=== PATIENT | male | born 1960 | race Asian ===

== ENCOUNTER 2025-09-24 12:24 | Emergency (ER) | payer MEDICAID, SELFPAY ==
[2025-09-24 12:33] VITALS: BP 134/86; PULSE 80; RESP 16; TEMP 36.7; O2SAT 96; BMI 22.9
[2025-09-24 12:53] LABS: Appearance Urine Clear (Clear)
--- NOTE | 2025-09-24 14:22 | CRLHL7_ITS ---
For Patients: As a result of the Century Cures Act, medical imaging exams and procedure reports are released immediately into your electronic medical record. You may view this report before your referring provider. If you have questions, please contact your health care provider. Indication: Right lower quadrant into groin pain. Technique: Routine enhanced abdomen and pelvis protocol with 70 mL Isovue 370 IV contrast. Comparison: None. Findings : Lung bases: Minor dependent atelectasis. Liver: Normal in caliber and attenuation. No masses. Gallbladder and bile ducts: Contracted. No calcified stones. No biliary dilation. Pancreas: Unremarkable. Spleen: Normal in caliber. No masses. Adrenal glands: Unremarkable. No masses. Kidneys: No obstruction. No masses. No calculi. GI tract: Normal in caliber and appearance. No sign of mass or inflammation. Mild descending and sigmoid diverticulosis without focal inflammation. Appendix: Normal. No acute appendicitis. Lymph nodes: No lymphadenopathy. Aorta and vessels: No aneurysm or severe stenosis. Omentum/peritoneum/retroperitoneum: No masses or infiltration. No free air or significant free fluid. . Preservation of the periprostatic fat planes. Bones: No fractures or suspicious bone lesions. Soft Tissues: No mass lesions or significant hernias. Impression: No findings for acute or active abdominal or pelvic disease Please note that all CT scans at this facility use dose modulation, iterative reconstruction, and/or weight-based dosing when appropriate to reduce radiation dose to as low as reasonably achievable. Dictated by Tolu Ames MD @ 09/24/2025 3:51:24 PM (Electronically Signed)
[2025-09-24 15:03] LABS: Lactate* 1.2 mmol/L (0.5-1.9)
--- NOTE | 2025-09-24 15:05 | ED.ABDPAIN ---
HPI - Abdominal Pain General Time Seen by Provider: 15:05 <Marcela Wilson MD - Last Filed: 09/30/25 12:13> Date Seen: 09/24/25 <Marcela Wilson MD - Last Filed: 09/30/25 12:13> Chief Complaint: Abdominal Pain <Marcela Wilson MD - Last Filed: 09/30/25 12:13> Stated Complaint: Pelvic pain/pressure, poss. appendix, sent from <Marcela Wilson MD - Last Filed: 09/30/25 12:13> Time Seen by Provider: 09/24/25 12:40 <Marcela Wilson MD - Last Filed: 09/30/25 12:13> Source: patient, family, RN notes reviewed and old records reviewed <Marcela Wilson MD - Last Filed: 09/30/25 12:13> Mode of arrival: ambulatory <Marcela Wilson MD - Last Filed: 09/30/25 12:13> Limitations: no limitations <Marcela Wilson MD - Last Filed: 09/30/25 12:13> History of Present Illness HPI narrative: This 64-year-old male is referred from urgent care for abdominal pain that is concerning for appendicitis with right lower quadrant abdominal pain. They felt he needed further imaging. Trinidad Rojas from urgent care did call report. He is had symptoms for about 10 days but it is worsening. He states it originally was just less painful but has progressed, it hurts to bend over. He states the pain is in the right lower abdomen and goes into the right testicle, feels the right testicle is swollen. He has no prior nausea vomiting but is feeling nauseated due to pain now. He has had no fevers, no change in urination, no change in bowel movements. He ate a big breakfast, had not noted any prior changes in appetite. He denies any prior abdominal surgeries. He does have diabetes and his sugar has been running high. His [id number] is present helping interpret but patient seems to do fine speaking Greek. 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 He notes he took 3 shots of Tequila several days ago. He feels less pain if he is lying flat. Walking, bending forward increases symptoms. He has noted no dysuria, no hematuria. He was noted to have right lower quadrant tenderness in urgent care and referred for further imaging. <Marcela Wilson MD - Last Filed: 09/30/25 12:13> MD elicited complaint: abdominal pain <aMrcela Wilson MD - Last Filed: 09/30/25 12:13> Related Data Home Medications: Home Medications ?Medication ?Instructions ?Recorded ?Confirmed metformin 500 mg tablet,extended 500 mg PO 3XD 09/24/25 09/24/25 release 24 hr rosuvastatin 20 mg tablet 20 mg PO QPM 09/24/25 09/24/25 Previous Rx's ?Medication ?Instructions ?Recorded ketorolac 10 mg tablet 10 mg PO TID 5 days #15 tabs 09/24/25 levofloxacin 500 mg tablet 500 mg PO DAILY 10 days #10 tabs 09/24/25 <Marcela Wilson MD - Last Filed: 09/30/25 12:13> Allergies/Adverse Reactions: Allergies Allergy/AdvReac Type Severity Reaction Status Date / Time No Known Drug Allergies Allergy Verified 09/24/25 16:37 <Marcela Wilson MD - Last Filed: 09/30/25 12:13> Review of Systems Status of ROS Reports: 6 or more systems reviewed and unremarkable except as noted in History and below <Marcela Wilson MD - Last Filed: 09/30/25 12:13> Exam Const: Vital Signs, click to edit/add: Vital Signs - 24 hr 09/24/25 12:33 09/24/25 16:00 09/24/25 16:01 Temperature 98.1 F Pulse Rate 68 67 Pulse Rate [Pulse Oximeter] 80 Respiratory Rate 16 16 Blood Pressure 145/92 H Blood Pressure [Ri ght Upper Arm] 134/86 Pulse Oximetry 96 96 94 Oxygen Delivery Me thod Room Air 09/24/25 16:02 09/24/25 16:15 09/24/25 16:22 Temperature Pulse Rate 68 68 65 Pulse Rate [Pulse Oximeter] Respiratory Rate 16 Blood Pressure 147/94 H 116/87 Blood Pressure [Ri ght Upper Arm] Pulse Oximetry 96 96 97 Oxygen Delivery Me thod This 64-year-old male is seen in exam room 1, he is alert, interactive, no apparent distress. Sclera clear, conjugate gaze. Symmetric facial function, speech normal. Very pleasant. Lungs are clear, good air entry, no wheezing or crackles, no tachypnea, no accessory muscle use. CV regular rate and rhythm, no murmur, normal S1-S2. Abdomen is soft, no masses organomegaly noted. He is nontender until you come to his right lower quadrant where he has some guarding, maybe rebound. The pain continues along the right inguinal canal, right testicle seems to be more retracted towards the canal and is quite tender, maybe some swelling but is tenderness really limits examination. The scrotum itself does not look erythematous or significantly swollen. Left testicle is nontender and normal lie within the scrotum. I do not feel any definite entrapment of bowel within the right inguinal canal but he is quite tender which limits exam. <Marcela Wilson MD - Last Filed: 09/30/25 12:13> Vital Signs, click to edit/add: Vital Signs - 24 hr 09/24/25 12:33 09/24/25 16:00 09/24/25 16:01 Temperature 98.1 F Pulse Rate 68 67 Pulse Rate [Pulse Oximeter] 80 Respiratory Rate 16 16 Blood Pressure 145/92 H Blood Pressure [Ri ght Upper Arm] 134/86 Pulse Oximetry 96 96 94 Oxygen Delivery Me thod Room Air 09/24/25 16:02 09/24/25 16:15 09/24/25 16:22 Temperature Pulse Rate 68 68 65 Pulse Rate [Pulse Oximeter] Respiratory Rate 16 Blood Pressure 147/94 H 116/87 Blood Pressure [Ri ght Upper Arm] Pulse Oximetry 96 96 97 Oxygen Delivery Me thod <Adalberto Tan MD - Last Filed: 09/24/25 17:40> Documenting provider has reviewed patient's vital signs: yes <Marcela Wilson MD - Last Filed: 09/30/25 12:13> Course Course ED Course: Had ordered an IV placement, labs to be drawn and CT of his abdomen and pelvis while patient was awaiting a room back in the ED. There was a weight due to the volume in the acuity in the ER. I did try to facilitate this as I had taken the phone call from urgent care. I have also added on a testicular/scrotal ultrasound given the right scrotal pain. With 10 days of history, doubt this is testicular torsion but is testicle seems to have definite tenderness and an abnormal lie within the scrotum, seems to be retracted towards the canal. He has got definite right lower quadrant tenderness. We will be looking at CT abdomen pelvis with IV contrast and scrotal ultrasound to delineate whether this is intra-abdominal pathology, hernia or something with the in the testicle/scrotum. Have ordered some fentanyl, will have him on pulse oximetry, did premedicate with Zofran. He did have a urinalysis collected in triage and that is looking reassuring. <Marcela Wilson MD - Last Filed: 09/30/25 12:13> Vital Signs Vital signs: Initial Vital Signs Temperature 98.1 F 09/24/25 12:33 Temperature Source Temporal Artery Scan 09/24/25 12:33 Pulse Rate 80 09/24/25 12:33 Respiratory Rate 16 09/24/25 12:33 Blood Pressure 134/86 09/24/25 12:33 Blood Pressure Mean 102 09/24/25 12:33 Blood Pressure Position Sitting 09/24/25 12:33 Pulse Oximetry 96 09/24/25 12:33 Oxygen Delivery Method Room Air 09/24/25 12:33 Vital Signs Temperature 98.1 F 09/24/25 12:33 Pulse Rate 80 09/24/25 12:33 Respiratory Rate 16 09/24/25 12:33 Blood Pressure 134/86 09/24/25 12:33 Pulse Oximetry 96 09/24/25 12:33 Oxygen Delivery Method Room Air 09/24/25 12:33 Temperature 98.1 F 09/24/25 12:33 Pulse Rate 65 09/24/25 16:22 Respiratory Rate 16 09/24/25 16:22 Blood Pressure 116/87 09/24/25 16:22 Pulse Oximetry 97 09/24/25 16:22 Oxygen Delivery Method Room Air 09/24/25 12:33 <Marcela Wilson MD - Last Filed: 09/30/25 12:13> Initial Vital Signs Temperature 98.1 F 09/24/25 12:33 Temperature Source Temporal Artery Scan 09/24/25 12:33 Pulse Rate 80 09/24/25 12:33 Respiratory Rate 16 09/24/25 12:33 Blood Pressure 134/86 09/24/25 12:33 Blood Pressure Mean 102 09/24/25 12:33 Blood Pressure Position Sitting 09/24/25 12:33 Pulse Oximetry 96 09/24/25 12:33 Oxygen Delivery Method Room Air 09/24/25 12:33 Vital Signs Temperature 98.1 F 09/24/25 12:33 Pulse Rate 80 09/24/25 12:33 Respiratory Rate 16 09/24/25 12:33 Blood Pressure 134/86 09/24/25 12:33 Pulse Oximetry 96 09/24/25 12:33 Oxygen Delivery Method Room Air 09/24/25 12:33 Temperature 98.1 F 09/24/25 12:33 Pulse Rate 65 09/24/25 16:22 Respiratory Rate 16 09/24/25 16:22 Blood Pressure 116/87 09/24/25 16:22 Pulse Oximetry 97 09/24/25 16:22 Oxygen Delivery Method Room Air 09/24/25 12:33 <Adalberto Tan MD - Last Filed: 09/24/25 17:40> Medications Administered Medications: Discontinued Medications Generic Name Dose Route Start Last Admin Trade Name Freq PRN Reason Stop Dose Admin Fentanyl 50 mcg 09/24/25 15:15 09/24/25 15:53 Fentanyl 100 Mcg/2 Ml Inj IVP 09/24/25 15:16 50 mcg ONCE ONE Administration Sodium Chloride 1,000 mls @ 500 mls/hr 09/24/25 15:46 09/24/25 17:40 0.9 % Sodium Chloride 1000 Ml IV 09/24/25 17:45 Infused .Q2H ROBBY Infusion Ondansetron HCl 4 mg 09/24/25 15:15 09/24/25 15:54 Ondansetron 2 Mg/Ml Inj IVP 09/24/25 15:16 4 mg ONCE ONE Administration <Marcela Wilson MD - Last Filed: 09/30/25 12:13> Discontinued Medications Generic Name Dose Route Start Last Admin Trade Name Freq PRN Reason Stop Dose Admin Fentanyl 50 mcg 09/24/25 15:15 09/24/25 15:53 Fentanyl 100 Mcg/2 Ml Inj IVP 09/24/25 15:16 50 mcg ONCE ONE Administration Sodium Chloride 1,000 mls @ 500 mls/hr 09/24/25 15:46 09/24/25 17:40 0.9 % Sodium Chloride 1000 Ml IV 09/24/25 17:45 Infused .Q2H ROBBY Infusion Ondansetron HCl 4 mg 09/24/25 15:15 09/24/25 15:54 Ondansetron 2 Mg/Ml Inj IVP 09/24/25 15:16 4 mg ONCE ONE Administration <Adalberto Tan MD - Last Filed: 09/24/25 17:40> MDM - Abdominal Pain MDM Narrative Medical decision making narrative: care for this patient was transferred to ri at the end of Dr. Vann's shift. Ultrasound report returns with evidence of epididymitis. The patient has normal vital signs and is okay to return home. He did receive prescription for Levaquin 500 mg daily for 10 days. I also provided prescription for Toradol. <Adalberto Tan MD - Last Filed: 09/24/25 17:40> Lab Data Attestation: I reviewed the patient's lab results. <Marcela Wilson MD - Last Filed: 09/30/25 12:13> Labs: Lab Results 09/24/25 09/24/25 09/24/25 Range/Units 12:40 14:23 14:55 WBC 11.07 H (4.50-11.00) K/uL RBC 4.82 (4.30-5.90) m/uL Hgb 14.6 (13.5-17.5) gm/dL Hct 43.9 (37.0-53.0) % MCV 91 (80-100) fL MCH 30 (26-34) pg MCHC 33 (32-36) gm/dL RDW Coeff of Sara 12.7 (11.5-15.5) % Plt Count 283 (140-440) K/uL Neut % (Auto) 68.4 (42.0-72.0) % Lymph % (Auto) 21.8 (20-44) % Eddy % (Auto) 5.5 (0.0-11.0) % Eos % (Auto) 3.0 (0.0-7.0) % Baso % (Auto) 0.5 (0.0-3.0) % Neut # (Auto) 7.60 H (1.7-7.0) K/uL Lymph # (Auto) 2.40 (0.90-2.90) K/uL Eddy # (Auto) 0.60 (0.00-0.90) K/UL Eos # (Auto) 0.30 (0.00-0.50) K/uL Baso # (Auto) 0.10 (0.00-0.30) K/uL Abs Immat Gran (auto) 0.10 (0.00-0.30) K/uL Imm/Tot Granulo (auto) 0.8 % Sodium 136 (135-149) mmol/L Potassium 4.4 (3.6-5.1) mmol/L Chloride 105 (96-114) mmol/L Carbon Dioxide 26 (20-32) mmol/L Anion Gap 5 L (7-15) mEq/L BUN 16 (7-30) mg/dL Creatinine 0.9 (0.5-1.5) mg/dL Estimated Creat Clear 71.61 Estimated GFR 97 ml/min Glucose 268 H (60-115) mg/dL Lactate 1.2 (0.5-1.9) mmol/L Calcium 8.9 (8.4-10.6) mg/dL Total Bilirubin 0.5 (0.1-1.5) mg/dL AST 22 (12-35) U/L ALT 24 (4-50) U/L Alkaline Phosphatase 63 (40-150) U/L C-Reactive Protein < 0.5 L (0.5-1.0) mg/dL Total Protein 7.0 (6.0-8.3) g/dL Albumin 4.2 (3.3-5.0) g/dL Lipase 56 (23-300) U/L Urine Color Yellow (Yellow) Urine Appearance Clear (Clear) Urine pH 5.0 (5.0-8.5) Ur Specific [place] >= 1.030 (1.000-1.030) Urine Protein Negative (Negative) Urine Glucose (UA) 2+ A (Negative) Urine Ketones Negative (Negative) Urine Blood Trace-intact A (Negative) Urine Nitrite Negative (Negative) Urine Bilirubin Negative (Negative) Urine Urobilinogen 0.2 (0.2-1.0) Ur Leukocyte Esterase Negative (Negative) Urine RBC 0-2 (0-2) Urine WBC 2-5 (0-5) Urine WBC Clumps Few A (None) Ur Squamous Epith Cells Few (None-Few) Urine Bacteria Few A (None) POC Creatinine 1.0 (0.6-1.3) mg/dl <Marcela Wilson MD - Last Filed: 09/30/25 12:13> Lab Results 09/24/25 09/24/25 09/24/25 Range/Units 12:40 14:23 14:55 WBC 11.07 H (4.50-11.00) K/uL RBC 4.82 (4.30-5.90) m/uL Hgb 14.6 (13.5-17.5) gm/dL Hct 43.9 (37.0-53.0) % MCV 91 (80-100) fL MCH 30 (26-34) pg MCHC 33 (32-36) gm/dL RDW Coeff of Sara 12.7 (11.5-15.5) % Plt Count 283 (140-440) K/uL Neut % (Auto) 68.4 (42.0-72.0) % Lymph % (Auto) 21.8 (20-44) % Eddy % (Auto) 5.5 (0.0-11.0) % Eos % (Auto) 3.0 (0.0-7.0) % Baso % (Auto) 0.5 (0.0-3.0) % Neut # (Auto) 7.60 H (1.7-7.0) K/uL Lymph # (Auto) 2.40 (0.90-2.90) K/uL Eddy # (Auto) 0.60 (0.00-0.90) K/UL Eos # (Auto) 0.30 (0.00-0.50) K/uL Baso # (Auto) 0.10 (0.00-0.30) K/uL Abs Immat Gran (auto) 0.10 (0.00-0.30) K/uL Imm/Tot Granulo (auto) 0.8 % Sodium 136 (135-149) mmol/L Potassium 4.4 (3.6-5.1) mmol/L Chloride 105 (96-114) mmol/L Carbon Dioxide 26 (20-32) mmol/L Anion Gap 5 L (7-15) mEq/L BUN 16 (7-30) mg/dL Creatinine 0.9 (0.5-1.5) mg/dL Estimated Creat Clear 71.61 Estimated GFR 97 ml/min Glucose 268 H (60-115) mg/dL Lactate 1.2 (0.5-1.9) mmol/L Calcium 8.9 (8.4-10.6) mg/dL Total Bilirubin 0.5 (0.1-1.5) mg/dL AST 22 (12-35) U/L ALT 24 (4-50) U/L Alkaline Phosphatase 63 (40-150) U/L C-Reactive Protein < 0.5 L (0.5-1.0) mg/dL Total Protein 7.0 (6.0-8.3) g/dL Albumin 4.2 (3.3-5.0) g/dL Lipase 56 (23-300) U/L Urine Color Yellow (Yellow) Urine Appearance Clear (Clear) Urine pH 5.0 (5.0-8.5) Ur Specific [place] >= 1.030 (1.000-1.030) Urine Protein Negative (Negative) Urine Glucose (UA) 2+ A (Negative) Urine Ketones Negative (Negative) Urine Blood Trace-intact A (Negative) Urine Nitrite Negative (Negative) Urine Bilirubin Negative (Negative) Urine Urobilinogen 0.2 (0.2-1.0) Ur Leukocyte Esterase Negative (Negative) Urine RBC 0-2 (0-2) Urine WBC 2-5 (0-5) Urine WBC Clumps Few A (None) Ur Squamous Epith Cells Few (None-Few) Urine Bacteria Few A (None) POC Creatinine 1.0 (0.6-1.3) mg/dl <Adalberto Tan MD - Last Filed: 09/24/25 17:40> Imaging Data CT scan - abdomen: Attestation: I have reviewed the pertinent imaging results. <Marcela Wilson MD - Last Filed: 09/30/25 12:13> Radiologist's impression: Patient: NEVILLE RED Facility:?[facility] Patient ID:?[id number] Site Patient ID:?[id number]. Site :?[id number] Study:?CT-Abdomen/Pelvis 71CC ISOVUE 370-09/24/2025 3:38:51 PM Ordering Physician:Nithin Medrano Final Report: Indication: Right lower quadrant into groin pain. Technique: Routine enhanced abdomen and pelvis protocol with 70 mL Isovue 370 IV contrast. Comparison: None. Findings : Lung bases: Minor dependent atelectasis. Liver: Normal in caliber and attenuation. No masses. Gallbladder and bile ducts: Contracted. No calcified stones. No biliary dilation. Pancreas: Unremarkable. Spleen: Normal in caliber. No masses. Adrenal glands: Unremarkable. No masses. Kidneys: No obstruction. No masses. No calculi. GI tract: Normal in caliber and appearance. No sign of mass or inflammation. Mild descending and sigmoid diverticulosis without focal inflammation. Appendix: Normal. No acute appendicitis. Lymph nodes: No lymphadenopathy. Aorta and vessels: No aneurysm or severe stenosis. Omentum/peritoneum/retroperitoneum: No masses or infiltration. No free air or significant free fluid. . Preservation of the periprostatic fat planes. Bones: No fractures or suspicious bone lesions. Soft Tissues: No mass lesions or significant hernias. Impression: No findings for acute or active abdominal or pelvic disease Please note that all CT scans at this facility use dose modulation, iterative reconstruction, and/or weight-based dosing when appropriate to reduce radiation dose to as low as reasonably achievable. Dictated by Tolu Ames MD @ 09/24/2025 3:51:24 PM (Electronic Signature) <Marcela Wilson MD - Last Filed: 09/30/25 12:13> Discharge Plan Discharge Clinical Impression: Acute epididymitis <Marcela Wilson MD - Last Filed: 09/30/25 12:13> Patient Disposition: Home, Self-Care <Marcela Wilson MD - Last Filed: 09/30/25 12:13> Condition: Stable <Marcela Wilson MD - Last Filed: 09/30/25 12:13> Instructions: Epididymitis (ED) <Marcela Wilson MD - Last Filed: 09/30/25 12:13> Additional Instructions: take medication as prescribed. Follow up with MD return if worsening symptoms occur. <Marcela Wilson MD - Last Filed: 09/30/25 12:13> Prescriptions: New ketorolac 10 mg tablet 10 mg PO TID 5 Days Qty: 15 0RF levofloxacin 500 mg tablet 500 mg PO DAILY 10 Days Qty: 10 0RF No Action metformin 500 mg tablet extended release 24 hr 500 mg PO 3XD rosuvastatin 20 mg tablet 20 mg PO QPM <Marcela Wilson MD - Last Filed: 09/30/25 12:13> Follow Up/Referrals: ZULLY JARRELL DO [Primary Care Provider, Family Practice] <Marcela Wilson MD - Last Filed: 09/30/25 12:13> Stand Alone Forms: MyHealth Info Instructions <Marcela Wilson MD - Last Filed: 09/30/25 12:13>
[2025-09-24 15:11] LABS: Hematocrit* 43.9 % (37.0-53.0); Hemoglobin* 14.6 gm/dL (13.5-17.5); Immature Granulocytes Pct Auto 0.8 %; Mean Corpuscular HGB Conc 33 gm/dL (32-36); Mean Corpuscular Hemoglobin 30 pg (26-34); Mean Corpuscular Volume 91 fL (80-100); RDW Coefficient of Variation % 12.7 % (11.5-15.5); Red Blood Count* 4.82 m/uL (4.30-5.90); White Blood Count* 11.07 K/uL (4.50-11.00)
--- NOTE | 2025-09-24 15:15 | CRLHL7_ITS ---
For Patients: As a result of the Century Cures Act, medical imaging exams and procedure reports are released immediately into your electronic medical record. You may view this report before your referring provider. If you have questions, please contact your health care provider. Indication: Right testicular pain Technique: Testicular ultrasound utilizing grayscale and color and spectral Doppler Comparison: None Findings: Left testicle: Normal in echogenicity and size measuring 3.7 x 2.5 x 2.5 centimeters. No suspicious testicular mass/lesion. Normal arterial venous blood flow. The epididymis is unremarkable. No significant hydrocele. No varicocele. Right testicle: Normal in echogenicity and size measuring 3.2 x 2.8 x 3.0 centimeters. No suspicious testicular mass/lesion. Normal arterial venous blood flow. Enlargement of the right epididymis, difficult to accurately measure secondary to orientation, with increased blood flow and overall increased echogenicity. No significant hydrocele. No varicocele. Impression: 1. No testicular torsion. 2. Sonographic findings as detailed above concerning for right epididymitis. 3. No suspicious testicular masses/lesions. Dictated by Donald Jefferson MD @ 09/24/2025 5:13:05 PM (Electronically Signed)
[2025-09-24 15:16] LABS: Immature Granulocytes Abs Auto 0.10 K/uL (0.00-0.30); Lymphocytes Absolute Auto 2.40 K/uL (0.90-2.90); Slide Review Reflex No
[2025-09-24 15:19] LABS: Albumin* 4.2 g/dL (3.3-5.0); Chloride* 105 mmol/L (96-114); Potassium* 4.4 mmol/L (3.6-5.1); Sodium* 136 mmol/L (135-149)
[2025-09-24 15:22] LABS: Alanine Aminotransferase* 24 U/L (4-50); Alkaline Phosphatase* 63 U/L (40-150); Anion Gap 5 mEq/L (7-15); Aspartate Amino Transferase* 22 U/L (12-35); Bilirubin Total* 0.5 mg/dL (0.1-1.5); Blood Urea Nitrogen* 16 mg/dL (7-30); Carbon Dioxide* 26 mmol/L (20-32); Creatinine* 0.9 mg/dL (0.5-1.5); Est. Creatinine Clearance* 71.61; Estimated Glomerular Filt Rate 97 ml/min; Total Protein* 7.0 g/dL (6.0-8.3)
[2025-09-24 15:23] LABS: Calcium* 8.9 mg/dL (8.4-10.6); Glucose* 268 mg/dL (60-115)
--- OUTSIDE RECORDS SUMMARY | 2025-09-24 15:29 | XMS_ITS | Clinical Summary ---
Author Organization [facility] Address [address] [place] [address] Care Team Providers Care Operations Administrator Name Role Phone Brad Trevino MD Primary Care Provider [phone] Source Comments You are receiving this document as you are listed as the primary care provider,follow-up provider, or the patient has been referred to you for consultation.This is in compliance with the Medicare and[facility] Cent[facility] EHR Incentive Program,which states Providers who transition their patient to another setting of careor provider of care or refers their patient to another provider of care shouldprovide summary care record for each transition of care or referral. [facility] Allergies No known active allergies Medications aspirin EC 81 MG enteric coated tabletIndicatio ns:Type 2 diabetes mellitus without complication, without long-term current use of insulin (HRC) Take 1 Tablet by mouth daily. 90 Tablet 3 11/10/2019 Active latanoprost (XALATAN) 0.005 % eye drop solution Place 1 Drop into both eyes every evening. 2.5 mL 11 12/19/2019 Active HYDROcodone-susana taminophen (NORCO) 5-325 MG tabletIndicatio ns:Pain, dental Take 1-2 Tablets by mouth every 6 hours as needed. 15 Tablet 12/26/2019 Active metFORMIN XR (GLUCOPHAGE XR) 500 MG 24 hour release tabletIndicatio ns:Type 2 diabetes mellitus without complication, without long-term current use of insulin (HRC) Take 2 Tablets by mouth two times a day with meals. 360 Tablet 3 01/01/2020 Active ketorolac (ACULAR) 0.5 % eye drop solution 1 Drop 4x/day to the surgical eye. Start day of surgery 5 mL 1 01/19/2020 Active ofloxacin (OCUFLOX) 0.3 % eye drop solution 1 drop 4x/day to surgical eye. Start 2 days before surgery 5 mL 1 01/19/2020 Active prednisoLONE acetate (PRED FORTE) 1 % eye drop suspension 1 drop 4x/day to surgical eye. 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 Overview (01/19/2020): Added automatically from request for surgery [id number] Immunizations Immunization Administration Dates Next Due Influenza IIV4 (Quadrivalent) 0.5mL (87541) 10/23,10/19/2018 PPSV23 (Pneumovax) 07/22/2018 Td 06/25/1999 Tdap 02/18/2018 Family History Medical History Relation Name Comments Diabetes Father Diabetes Brother Amblyopia/Strabismus Negative Family History Glaucoma Negative Family History Macular Degeneration Negative Family History Retinal Detachment Negative Family History Relation Name Status Comments Father Brother Social History Tobacco Use Types Packs/Day Years Used Date Smoking Tobacco: Every Day Smokeless Tobacco: Never Alcohol Use Standard Drinks/Week Comments Yes 0 (1 standard drink = 0.6 oz pur e alcohol) PHQ-2 Answer Date Recorded PHQ-2 Score 0 11/10/2019 Sex and Gender Information Value Date Recorded Sex Assigned at Not on file Legal Sex Male 5:35 AM CDT Gender Identity Not on file Sexual Orientation Not on file Last Filed Vital Signs Vital Sign Reading Time Taken Comments Blood Pressure 136/86 01/01/2020 5:45 PM RN SCHOOL Pulse 76 01/01/2020 5:45 PM RN SCHOOL Temperature - - Respiratory Rate - - Oxygen Saturation - - Inhaled Oxygen Concentration - - Weight 74.5 kg (164 lb 3.2 oz) 01/01/2020 5:45 P M RN SCHOOL Height 172 cm (5' 7.72) 11/10/2019 3:25 PM RN SCHOOL Body Mass Index 25.18 11/10/2019 3:25 PM RN SCHOOL Plan of Treatment Health Maintenance Due Date Last Done Comments Diabetes: Foot Exam 1962 Diabetes: Lipid Panel 1962 Hep B Immunization Discussion 1962 Hep C Screening (Preventive Services) 1962 PSA Screening Discussion 1962 HIV Screening (Preventive Services) 1978 Zoster/Shingles Vaccine (1 o f 2) 2012 Pneumococcal Vaccine 50+ Yrs (2 of 2 - PCV) 07/22/2019 07/22/2018 Adult Preventive Visit 11/10/2020 11/10/2019 Diabetes: Albumin/Creatinine Ratio, Urine 11/10/2020 11/10/2019 Diabetes: Creatinine 11/10/2020 11/10/2019 Diabetes: Eye Exam 01/09/2021 01/09/2020, 12/01/2019 FIT Colon Cancer Screening 03/19/2021 03/19/2020 Diabetes: HGBA1C 09/05/2021 03/06/2021, 01/01/2020, 11/10/2019 COVID-19 Vaccine (1 - 2023-2 5 season) 2025 Influenza Vaccine (#1) 2025 9, 10/19/2018 DTaP/Tdap/Td Vaccine (2 - Tdap) 02/19/2028 02/18/2018, 06/25/1999 RSV Vaccine (1 - 1-dose 75+ series) 2037 HepA Vaccine Aged Out No longer eligi ble based on patient's age to complete this topic HepB Vaccine Aged Out No longer eligi ble based on patient's age to complete this topic Hib Vaccine Aged Out No longer eligi ble based on patient's age to complete this topic IPV (Polio) Vaccine Aged Out No longe r eligible based on patient's age to complete this topic MCV4 Vaccine Aged Out No longer eligi ble based on patient's age to complete this topic Meningococcal B Vaccine Aged Out No l onger eligible based on patient's age to complete this topic Procedures Procedure Name Priority Date/Time Associated Diagnosis Comments FIT,OCCULT BLOOD, STOOL Routine 03/19/2020 3:23 PM CDT Screening for colon cancer HGB A1C Routine 01/01/2020 6:14 PM RN SCHOOL Type 2 diabetes mellitus without complication, without long-term current use of insulin (HRC) ALBUMIN/CREAT RATIO Routine 11/10/2019 4 :48 PM RN SCHOOL Type 2 diabetes mellitus without complication, without long-term current use of insulin (HRC) CREATININE / GFR Routine 11/10/2019 4:19 PM RN SCHOOL Type 2 diabetes mellitus without complication, without long-term current use of insulin (HRC) Well adult exam from Last 3 Months or Most Recently Relevant to Health Maintenance Results * FIT Colon Rectal Cancer Screening (03/19/2020 3:23 PM CDT) FIT Specimen 1 Negative Negative 03/20/2020 9:[address] [facility] Stool 03/19/2020 3:23 PM CDT 03/19/2020 3:23 PM CDT Brad Trevino MD LAB_1 Final Resu Performing Organization Address [facility] de Phone Number [facility] [address] [phone] * (ABNORMAL) Hemoglobin A1C Glycosylated (01/01/2020 6:14 PM RN SCHOOL) Pathologist [facility] Hemoglobin A1C 7.3(H) <=5.6 % 01/01/2020 9:12 PM RN SCHOOL [facility] Blood Venipuncture / Unknown 01/01/2020 6:14 PM RN SCHOOL 01/01/2020 6:14 PM RN SCHOOL Narrative [facility] - 01/01/2020 9:12 PM RN SCHOOL For patients not previously diagnosed with diabetes: 5.7-6.4%: Increased risk for diabetes 6.5% and greater: Diagnostic for diabetes For patients diagnosed with diabetes: <8.0%: Goal of therapy for ages 18-75 Clinicians may recommend a higher or lower goal for specific individuals. us Brad Trevino MD LAB_1 Final Resu lt Performing Organization Address City/[facility]/ZIP Co de Phone Number [facility] [address] * (ABNORMAL) Microalbumin Urine Random (UMAR) (11/10/2019 4:48 PM RN SCHOOL) Albumin, Urine, Random 110.4 mg/L 11/10/2019 6:[address] [facility] Creatinine, Urine, Random 145 >20 mg/dL 11/10/2019 6:[address] [facility] Albumin/Creati nine Ratio, Urine, Random 76(H) <30 mg/g 11/10/2019 6:[address] [facility] Urine,random 11/10/2019 4:4 8 PM RN SCHOOL 11/10/2019 4:48 PM RN SCHOOL Brad Trevino MD LAB_1 Final Resu lt Performing Organization Address [facility]/ZIP Co de Phone Number [facility] [address] [place] [address], [facility] [phone] * Creatinine (11/10/2019 4:19 PM RN SCHOOL) Creatinine 0.90 0.73 - 1.18 mg/dL 11/10/2019 6:[address] [facility] GFR, Estimated >60 >60 mL/min/1.7 3m2 11/10/2019 6:[address] [facility] GFR, Est If >60 >60 mL/min/1.7 3m2 11/10/2019 6:[address] [facility] Blood Venipuncture / Unknown 11/10/2019 4:19 PM RN SCHOOL 11/10/2019 4:19 PM RN S[facility]OL Brad Trevino MD LAB_1 Final Resu lt Performing Organization Address City/[facility]/ZIP Co de Phone Number [facility] [address] [place] [address], [facility] [phone] from Last 3 Months or Most Recently Relevant to Health Maintenance Care Teams Operations Administrator Relationship Specialty [place] [address] [place] [address] PCP - General Family Practice 01/02/20
--- OUTSIDE RECORDS SUMMARY | 2025-09-24 15:29 | XMS_ITS | Clinical Summary ---
Author Organization [facility] Address [address] [place] [address] Care Team Providers Care Television Agent Name Role Phone Silvestre Doran DO Primary Care Provider [phone] Allergies No known active allergies Medications calcium carbonate-vitam in D3, 500 mg-400 units, (OSCAL 500 + D) tablet Take 1 tablet by mouth 2 times daily before meals. 0 1 Active blood-glucose meterIndication s:Type 2 diabetes mellitus with hyperglycemia, without long-term current use of insulin (HC) by abdominal subcutaneous route. Dispense meter, test strips, lancets covered by pt ins. E11.65 IDDM type II, uncontrolled - Test 3 times/day. 1 Device 1 Active lancetsIndicati ons:Type 2 diabetes mellitus with hyperglycemia, without long-term current use of insulin (HC) As directed. Test 3 times per day. 1 Each 1 Active latanoprost (XALATAN) 0.005 % ophthalmic solutionIndicat ions:Primary open angle glaucoma of both eyes, unspecified glaucoma stage Place 1 Drop into both eyes at bedtime 7.5 mL 2 1 Active blood sugar diagnostic (Blood Glucose Test) stripIndication s:Type 2 diabetes mellitus with hyperglycemia, without long-term current use of insulin (HC) Test 3 times per day. 100 Each 12 4 Active metFORMIN (GLUCOPHAGE XR) 500 mg Extended-Releas e tabletIndicatio ns:Type 2 diabetes mellitus with hyperglycemia, without long-term current use of insulin (HC) TAKE THREE TABLETS BY MOUTH DAILY WITH EVENING MEAL. 270 Tablet 3 5 Active meloxicam (MOBIC) 7.5 mg tabletIndicatio ns:Accidental fall, initial encounter,Traum atic injury of rib,Breast tenderness in male Take 1 Tablet (7.5 mg) by mouth once daily. 30 Tablet 5 Active rosuvastatin (CRESTOR) 20 mg tabletIndicatio ns:Type 2 diabetes mellitus with hyperglycemia, without long-term current use of insulin (HC) Take 1 Tablet (20 mg) by mouth at bedtime. 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 Overview (01/02/2022): Added automatically from request for surgery [id number] Added automatically from request for surgery [id number] Encounters Date Type Department Care Team Description 09/24/[address] [address] Silvestre Doran DO Refill Request (Contour Next Test Strips) 09/24/[address] [address] Silvestre Doran DO Questions 06/27/[address] [address] Silvestre Doran DO Results 06/26/2025 10:15 AM CDT Ancillary Procedure [address] [address] 06/26/2025 9:20 AM CDT Office Visit [address] [address] Silvestre Doran DO Diabetes (Very nauseous in the morning ); Pain (Rib pain LEFT - x2 weeks ago fell - having a lot of pain last week, no SOB) 06/26/2025 Travel from Last 3 Months Immunizations Immunization Administration Dates Next Due Hepatitis B (Adult) 01/06/2021 Influenza, IIV4 11/10/2019,10/19/2018 Pneumococcal Poly,23-Valent (Pneumovax) 07/22/20 18 Td (Age >=7 Years) 06/25/1999 Tdap 02/18/2018 Family History Medical History Relation Name Comments Cancer-breast Sister Cancer-ovarian No Family History Relation Name Status Comments Sister Social History Tobacco Use Types Packs/Day Years Used Date Smoking Tobacco: Some Days Cigarettes Smokeless Tobacco: Never Tobacco Cessation:Ready to Q uit: No; Counseling Given: Yes Comments:5-6 a day Alcohol Use Standard Drinks/Week Comments Yes 0 (1 standard drink = 0.6 oz pur e alcohol) PHQ-2 Answer Date Recorded PHQ-2 TOTAL SCORE 0 03/20/2024 Social Connections Answer Date Recorded Do you often feel lonely or isolated from those around you? 0 03/20/2024 Financial Resource Strain Answer Date R ecorded Difficulty of Paying Living Expenses 3 03/20/2024 Difficulty of Paying Living Expenses Not on file 03/20/2024 Food Insecurity Answer Date Recorded Do you worry your food will run out before you are able to buy more? 1 03/20/2024 Transportation Needs Answer Date Record ed Does lack of transportation keep you from medica l appointments? 1 03/20/2024 Does lack of transportation keep you from work, meetings or getting things that you need? 1 03/20/2024 Housing Stability Answer Date Recorded What is your housing situation today? 1 03/20/2024 Utilities Answer Date Recorded Do you have trouble paying f or utilities (for example, heat, electricity, water, phone)? 1 03/20/2024 Sex and Gender Information Value Date Recorded Sex Assigned at Not on file Legal Sex Male 9:28 AM MARKETING REPORTING ANALYST Gender Identity Not on file Sexual Orientation Not on file Obstetrics History Last Filed Vital Signs Vital Sign Reading Time Taken Comments Blood Pressure 132/86 06/26/2025 9:26 AM CDT Pulse 76 06/26/2025 9:26 AM CDT Temperature 36.6 C (97.8 F) 01/02/2022 1:32 PM MARKETING REPORTING ANALYST Respiratory Rate 16 01/16/2021 3:03 PM MARKETING REPORTING ANALYST Oxygen Saturation 99% 06/26/2025 9:26 AM CDT Inhaled Oxygen Concentration - - Weight 65.7 kg (144 lb 14.4 oz) 06/26/2025 9:26 AM CDT Height 170.2 cm (5' 7) 06/26/2025 9:26 AM CDT Body Mass Index 22.69 06/26/2025 9:26 AM CDT Plan of Treatment Upcoming Encounters Date Type Department Care Team (Late st Contact Info) Description 10/01/2025 2:30 PM MARKETING REPORTING ANALYST Office Visit [facility] [address] [place] [address] Silvestre Doran DO [address] [place] [address] Health Maintenance Due Date Last Done Comments HIV for age 15-65 1977 Zoster (shingles) series for age 50+ (1 of 2) 2012 Pneumococcal series for age 50+ (2 of 2 - PCV) 07/22/2019 07/22/2018 Hepatitis B series for 19+ ( 2 of 3 - 19+ 3-dose series) 02/03/2021 01/06/2021 RSV vaccine for adults or pr egnancy (1 - Risk 60-74 years 1-dose series) 2022 Depression screening for age 12+ 03/23/2025 03/23/20, 03/20/2024 Influenza Vaccine (#1) 2025 11/10/2019, 2017 BMI (ht and wt on same day) for age 18+ 06/26/2026 06/26/2025, 12/21/2023, 12/16/2020 Fecal testing sDNA-FIT (Beatty guard) for age 45-75 07/25/2027 07/25/2024 Tetanus booster 02/19/2028 02/18/2018, 06/25/1999 Lipids for age 45-75 06/26/2030 06/26/2025, 01/08/2023, 01/06/2021 Hepatitis C screening for age 18-79 Completed 01/06 Procedures Procedure Name Priority Date/Time Associated Diagnosis Comments BASIC METABOLIC PANEL Routine 06/26/2025 9:57 AM CDT Type 2 diabetes mellitus with other specified complication, without long-term current use of insulin (HC) LIPID PANEL W REFLEX MEASURED LDL Routine 06/26/2025 9:57 AM CDT Type 2 diabetes mellitus with other specified complication, without long-term current use of insulin (HC) URINE ALBUMIN TO CREATININE RATIO, RANDOM Routine 06/26/2025 9:55 AM CDT Type 2 diabetes mellitus with other specified complication, without long-term current use of insulin (HC) HEMOGLOBIN A1C MONITORING (POCT) Routine 06/26/2025 9:55 AM CDT Type 2 diabetes mellitus with other specified complication, without long-term current use of insulin (HC) XR RIBS LEFT AND PA CHEST MINIMUM 3 VIEWS Routine 06/26/2025 9:48 AM CDT Accidental fall, initial encounter Traumatic injury of rib ANTI HCV Routine 01/06/2021 1:55 PM MARKETING REPORTING ANALYST Type 2 diabetes mellitus with hyperglycemia, without long-term current use of insulin (HC) from Last 3 Months or Most Recently Relevant to Health Maintenance Results * (ABNORMAL) LIPID PANEL W REFLEX MEASURED LDL (06/26/2025 9:57 AM CDT) Pathologist [facility] CHOLESTEROL, TOTAL 119 <200 mg/dL [facility] HDL CHOLESTEROL 53 > OR = 40 mg/dL [facility] TRIGLYCERIDES 158(H) <150 mg/dL [facility] LDL-CHOLESTEROL 42 mg/dL (calc) [facility] Comment: Reference range: <100 Desirable range <100 mg/dL for primary prevention; <70 mg/dL for patients with CHD or diabetic patients with > or = 2 CHD risk factors. LDL-C is now calculated using the Miriam calculation, which is a validated novel method providing better accuracy than the Friedewald equation in the estimation of LDL-C. Jabier YO et al. ILEANA. 2013;310(19): 1952-7558 (http://education.Fishlabs/faq/HCN841) CHOL/HDLC RATIO 2.2 <5.0 (calc) [facility] NON HDL CHOLESTEROL 66 <130 mg/dL (calc) [employer] [facility] Comment: For patients with diabetes plus 1 major ASCVD risk factor, treating to a non-HDL-C goal of <100 mg/dL (LDL-C of <70 mg/dL) is considered a therapeutic option. Blood BLOOD SPECIMEN / Unknown 06/26/2025 9:57 AM CDT 06/26/2025 9:57 AM CDT Silvestre Doran DO CHEMISTRY Final Result [facility] [address] [place] [address], [facility] [address] [place] [address] * (ABNORMAL) BASIC METABOLIC PANEL [83018.0] (06/26/2025 9:57 AM CDT) GLUCOSE 117(H) 65 - 99 mg/dL [facility] Comment: Fasting reference interval For someone without known diabetes, a glucose value between 100 and 125 mg/dL is consistent with prediabetes and should be confirmed with a follow-up test. UREA NITROGEN (BUN) 11 7 - 25 mg/dL [employer] [facility] CREATININE 0.94 0.70 - 1.35 mg/dL [facility] EGFR 92 > OR = 60 mL/min/1. 73m2 [employer] [facility] BUN/CREATININE RATIO SEE NOTE: 6 22 (calc) [facility] [facility] Comment: Not Reported: BUN and Creatinine are within reference range. SODIUM 138 135 - 146 mmol/L [facility] POTASSIUM 4.4 3.5 - 5.3 mmol/L [facility] CHLORIDE 103 98 - 110 mmol/L [facility] CARBON DIOXIDE 27 20 - 32 mmol/L [facility] ELECTROLYTE BALANCE 8 7 - 17 mmol/L (calc) [facility] CALCIUM 9.3 8.6 - 10.3 mg/dL [facility] Blood BLOOD SPECIMEN / Unknown 06/26/2025 9:57 AM CDT 06/26/2025 9:57 AM CDT Silvestre Doran DO CHEMISTRY Final Result Performing Organization Address City/[facility]/ZIP Co de Phone Number [facility] [address] [place] [address], [facility] [address] [place] [address] * (ABNORMAL) URINE ALBUMIN TO CREATININE RATIO, RANDOM (06/26/2025 9:55 AM CDT) ALB RAND URINE 82.3 mg/L 06/26/2025 3:51 PM CDT [facility] CREATININE,URIN E 1.89 g/L 06/26/2025 3:51 PM CDT [facility] ALBUMIN TO CREATININE RATIO,RAND UR 43.5(H) <30.0 mg/g creat 06/26/2025 3:51 PM CDT [facility] Urine URINE SPECIMEN / Unknown Non-Blood / Unknown 06/26/2025 9:55 AM CDT 06/26/2025 9:55 AM CDT Narrative [facility] - 06/26/2025 3:51 PM CDT If Albumin to Creatinine Ratio is elevated, consider the following: Elevations seen with incipient nephropathy associated with diabetes mellitus or hypertension. Stress, exercise,hematuria, and urinary tract infection may also produce elevated results. If clinically indicated, confirm with 24 Hour Albumin to Creatinine Ratio. us Silvestre Doran DO URINE Final Result [facility] [address] [place] [address], [place] * (ABNORMAL) HEMOGLOBIN A1C MONITORING (POCT) (06/26/2025 9:55 AM CDT) POC HEMOGLOBIN A1C 6.5(H) <6.0 % OF TOTAL HGB [facility] Comment: Any point of care results exhibiting inconsistency with the patient's clinical status should be repeated using a different testing method. Blood BLOOD SPECIMEN / Unknown 06/26/2025 9:55 AM CDT 06/26/2025 9:56 AM CDT [facility] CHEMISTRY Final Result [facility] [address] [place] [address], [facility] [address] [place] [address] * XR RIBS LEFT AND PA CHEST MINIMUM 3 VIEWS (06/26/2025 9:48 AM CDT) Anatomical Region Laterality Modality RIBS, RIBS L, CHEST Computed Rad iography 06/28/2025 11:5 3 AM CDT Impressions 06/28/2025 11:53 AM CDT IMPRESSION:Negative chest and and detailed left sided ribs. Dictated by Hero Lazaro MD @ 06/28/2025 11:53:52 AM (Electronically Signed) Narrative 06/28/2025 11:53 AM CDT For Patients: As a result of the Cures Act, medical imaging exams and procedure reports are released immediately into your electronic medical record. You may view this report before your referring provider. If you have questions, please contact your health care provider. INDICATION: Accidental fall, initial encounter. Traumatic injury of left-sided ribs. COMPARISON: None. TECHNIQUE: PA chest and 2 detailed views of the left-sided ribs. FINDINGS: The lungs are clear. There is no evidence of pulmonary contusion, pneumothorax or pleural effusion. The heart and pulmonary vessels are of normal size. Oblique detail views of the ribs demonstrate no evidence of fracture or intrinsic bone lesion. There is no evidence of pleural hematoma. Procedure Note Hero Lazaro MD - 06/28/2025 For Patients: As a result of the Cures Act, medical imagingexams and procedure reports are released immediately into your electronicmedical record. You may view this report before your referring provider.If you have questions, please contact your health care provider. INDICATION: Accidental fall, initial encounter. Traumatic injury of left-sided ribs. COMPARISON: None. TECHNIQUE: PA chest and 2 detailed views of the left-sided ribs. FINDINGS: The lungs are clear. There is no evidence of pulmonary contusion,pneumothorax or pleural effusion. The heart and pulmonary vessels are ofnormal size. Oblique detail views of the ribs demonstrate no evidence offracture or intrinsic bone lesion. There is no evidence of pleuralhematoma. IMPRESSION: IMPRESSION:Negative chest and and detailed left sided ribs. Dictated by Hero Lazaro MD @ 06/28/2025 11:53:52 AM (Electronically Signed) Silvestre Doran DO GENERAL IMAGING Final Result * ANTI HCV (01/06/2021 1:55 PM MARKETING REPORTING ANALYST) HEPATITIS C ANTIBODY Non-React cordell Non-React cordell 01/06/2021 8:50 PM MARKETING REPORTING ANALYST [facility] Comment:Antibodies to HCV no t detected; does not exclude the possibility of exposure to HCV. Blood BLOOD SPECIMEN / Unknown Venipuncture / Unknown 01/06/2021 1:55 PM MARKETING REPORTING ANALYST 01/06/2021 1:56 PM MARKETING REPORTING ANALYST [employer] DO SEND OUTS Final Result [facility] [address] [place] [address], from Last 3 Months or Most Recently Relevant to Health Maintenance Insurance [facility] Care Teams Television Agent Relationship Specialty Start Date End Date Silvestre Doran DO [address] [place] [address] PCP - General Family Practice 12/16/20
[2025-09-24 15:54] LABS: Creatinine, Point-of-Care* 1.0 mg/dl (0.6-1.3)
[2025-09-24] MEDS: ONDANSETRON 2 MG/ML inj 4 MG IVP (15:54)
[2025-09-24 16:00] VITALS: BP 145/92; PULSE 68; RESP 16; O2SAT 96
[2025-09-24 16:01] VITALS: PULSE 67; O2SAT 94
[2025-09-24 16:02] VITALS: BP 147/94; PULSE 68; O2SAT 96
[2025-09-24 16:15] VITALS: PULSE 68; O2SAT 96
[2025-09-24 16:22] VITALS: BP 116/87; PULSE 65; RESP 16; O2SAT 97
== END 2025-09-24 17:47 | disposition home or self-care (01) ==
PROVIDERS: Family Medicine; Emergency Provider Emergency Medicine Emergency Medical Services; PCP Student in an Organized Health Care Education/Training Program
DX: N45.1 Epididymitis (principal)
CPT/HCPCS: 36415; 74177; 76870; 80053; 81001; 82565; 83605; 83690; 85025; 86140; 87086; 93976; 94761; 96361; 96374; 96375; 99284; J2405; J3010; J7030; Q9967